=== PATIENT | female | born 1990 | race Two or more races ===

== ENCOUNTER 2018-07-08 21:55 | Emergency (ER) | payer OTHER ==
[~2018-07-08] VITALS: Ht 157.5 cm; Wt 79.4 kg
[2018-07-08 22:49] LABS: Basophils # (auto) 0 uL; Basophils % (auto) 0.3 % (0.0-2.0); Eosinophils # (auto) 0.2 uL; Eosinophils % (auto) 2.2 % (0.0-7.0); Hematocrit 34.4 % (36.0-46.0); Hemoglobin 10.7 g/dL (12.2-16.2); Lymphocytes # (auto) 2.5 uL; Lymphocytes % (auto) 30.8 % (10.0-50.0); Mean Corpuscular Hemoglobin 22.4 pg (28.0-32.0); Mean Corpuscular Volume 72.2 fL (80.0-100.0); Monocytes # (auto) 0.6 uL; Monocytes % (auto) 7.7 % (0.0-12.0); Neutrophils # (auto) 4.8 uL; Nucleated Red Blood Cells % 0.1 %; Platelet Count (auto) 271 10^3/uL (140-450); Red Blood Cells 4.77 10^6/uL (4.0-5.20); Red Cell Distribution Width 16.9 % (11.8-14.3); White Blood Cell 8.1 10^3/uL (4.4-10.8)
[2018-07-08 23:05] LABS: Albumin 3.7 g/dL (3.4-5.0); BUN/Creatinine Ratio 14.9; Calcium 9.1 mg/dL (8.5-10.1); Potassium 3.5 mmol/L (3.5-5.1)
[2018-07-08 23:08] LABS: Bilirubin, Total 0.2 mg/dL (0.2-1.0); Total Protein 8.3 g/dL (6.4-8.2)
[2018-07-08 23:31] LABS: Urine Bacteria FEW /hpf (None Seen); Urine Blood Negative /uL (Negative); Urine Mucus FEW (None Seen); Urine WBC 3 /hpf (0 - 5)
[2018-07-09] MEDS ORDERED: SODIUM CHLORIDE 0.9% 1,000 ML IV ONE (00:45)
[2018-07-09] MEDS ORDERED: MORPHINE SULFATE 4 MG/ML SYR/VIAL IV ONE (02:00)
[2018-07-09] MEDS ORDERED: ONDANSETRON HCL 4 MG/2 ML VIAL IV ONE (02:00)
[2018-07-09 04:20] VITALS: BP 96/62
== END 2018-07-09 04:32 ==
LOC: ER 22:06 → EEVIPCON 22:06 → ER 07-09 04:32
DX: K58.9 Irritable bowel syndrome, unspecified (principal); K21.9 Gastro-esophageal reflux disease without esophagitis; Z90.49 Acquired absence of other specified parts of digestive tract
CPT/HCPCS: 36415; 74176; 76705; 80053; 81001; 82150; 83690; 85025; 96361; 96374; 96375; 99284; J2270; J2405

== ENCOUNTER 2018-08-02 18:38 | Emergency (ER) | payer OTHER ==
[~2018-08-02] VITALS: Ht 157.5 cm; Wt 81.2 kg
[~2018-08-02 18:38] MED LIST: BUSP10TA90 PO; FLUO-125 PO; ONDA4TAB5 PO; PROP20TA73 PO
[2018-08-02 19:45] LABS: Basophils # (auto) 0 uL; Eosinophils # (auto) 0.1 uL; Hemoglobin 11.3 g/dL (12.2-16.2); Monocytes # (auto) 0.8 uL; Nucleated Red Blood Cells % 0.1 %; Red Cell Distribution Width 17.6 % (11.8-14.3)
[2018-08-02] MEDS ORDERED: SODIUM CHLORIDE 0.9% 1,000 ML IV ONE (19:45)
[2018-08-02] MEDS ORDERED: ONDANSETRON HCL 4 MG/2 ML VIAL IV ONE (19:45)
[2018-08-02 19:46] LABS: Basophils % (auto) 0.3 % (0.0-2.0); Eosinophils % (auto) 1.4 % (0.0-7.0); Hematocrit 35.3 % (36.0-46.0); Lymphocytes # (auto) 2.8 uL; Lymphocytes % (auto) 32.4 % (10.0-50.0); Mean Corpuscular Hgb Conc. 31.9 g/dL (32.0-36.0); Mean Corpuscular Volume 72.1 fL (80.0-100.0); Monocytes % (auto) 9.4 % (0.0-12.0); Neutrophils # (auto) 4.8 uL; Neutrophils % (auto) 56.5 % (37.0-80.0); Platelet Count (auto) 215 10^3/uL (140-450); White Blood Cell 8.5 10^3/uL (4.4-10.8)
[2018-08-02 19:52] LABS: Urine Bacteria FEW /hpf (None Seen); Urine Blood Negative /uL (Negative); Urine Specific Gravity 1.017 (1.001-1.035); Urine WBC 15 /hpf (0 - 5)
[2018-08-02 20:02] LABS: Albumin 4.1 g/dL (3.4-5.0); BUN/Creatinine Ratio 9.2; Calcium 9.3 mg/dL (8.5-10.1); Potassium 3.5 mmol/L (3.5-5.1)
[2018-08-02 20:05] LABS: Bilirubin, Total 0.3 mg/dL (0.2-1.0); Total Protein 8.8 g/dL (6.4-8.2)
[2018-08-02 20:33] LABS: Amylase 39 U/L (25-115); Lipase 75 U/L (73-393)
[2018-08-02] MEDS ORDERED: HYDROmorphone HCL 2 MG/ML VL IV ONE (21:30)
[2018-08-02] MEDS ORDERED: MAGNESIUM CITRATE SOLUTION 300 ML BTL PO ONE (22:15)
[2018-08-02 22:59] VITALS: BP 107/45
[2018-08-02] MEDS ORDERED: ONDANSETRON ODT 4 MG TAB PO ONE (23:00)
== END 2018-08-03 00:35 | disposition home or self-care (01) ==
LOC: EDBD 18:38 → ER 18:39
DX: K59.00 Constipation, unspecified (principal); R11.2 Nausea with vomiting, unspecified; K21.9 Gastro-esophageal reflux disease without esophagitis; Z91.040 Latex allergy status; Z79.899 Other long term (current) drug therapy
CPT/HCPCS: 36415; 74176; 80053; 81001; 81025; 82150; 83690; 85025; 96361; 96374; 96375; 99284; J1170; J2405; J7030; Q0162

== ENCOUNTER 2019-07-16 18:35 | Inpatient (IN) | payer OTHER ==
[~2019-07-16] VITALS: Ht 157.5 cm; Wt 84.3 kg
[~2019-07-16 18:35] MED LIST changes: +ONDA-144 PO; -ONDA4TAB5 PO
[2019-07-16] MEDS ORDERED: SODIUM CHLORIDE 0.9% 1,000 ML IVB ONE (19:56)
[2019-07-16 20:51] LABS: Basophils # (auto) 0 10 ^3/uL (0-0.2); Eosinophils # (auto) 0.1 10 ^3/uL (0-0.8); Eosinophils % (auto) 1.9 % (0.0-7.0); Hematocrit 35.9 % (36.0-46.0); Mean Corpuscular Volume 76.8 fL (80.0-100.0); Monocytes # (auto) 0.6 10 ^3/uL (0-1.3); Neutrophils % (auto) 55.4 % (37.0-80.0); Nucleated Red Blood Cells % 0.1 %
[2019-07-16 20:53] LABS: Basophils % (auto) 0.3 % (0.0-2.0); Hemoglobin 11.9 g/dL (12.2-16.2); Lymphocytes # (auto) 2.4 10 ^3/uL (0.4-5.4); Lymphocytes % (auto) 33.9 % (10.0-50.0); Mean Corpuscular Hemoglobin 25.5 pg (28.0-32.0); Mean Corpuscular Hgb Conc. 33.2 g/dL (32.0-36.0); Monocytes % (auto) 8.5 % (0.0-12.0); Neutrophils # (auto) 3.9 10 ^3/uL (1.6-8.6); Platelet Count (auto) 216 10^3/uL (140-450); Red Blood Cells 4.68 10^6/uL (4.0-5.20); Red Cell Distribution Width 16.6 % (11.8-14.3); White Blood Cell 7.1 10^3/uL (4.4-10.8)
[2019-07-16 21:00] LABS: INR 0.99 (0.9-1.15); Partial Thromboplastin Time 29.3 sec (23.64-32.05)
[2019-07-16 21:02] LABS: Albumin 3.7 g/dL (3.4-5.0); Anion Gap 3 (5-15); Blood Alcohol < 3.0 mg/dL (0-5); Blood Urea Nitrogen 8 mg/dL (7-18); Carbon Dioxide 28 mmol/L (21-32); Chloride 108 mmol/L (98-107); Glucose 83 mg/dL (74-106); Potassium 4.2 mmol/L (3.5-5.1); Sodium 139 mmol/L (136-145)
[2019-07-16 21:08] LABS: Alanine Aminotransferase 31 U/L (13-56); Alkaline Phosphatase 82 U/L (45-117); Aspartate Aminotransferase 21 U/L (15-37); BUN/Creatinine Ratio 9.6; Bilirubin, Total 0.1 mg/dL (0.2-1.0); GFR African American 105 mL/min; GFR Non-African American 87 mL/min; Total Protein 8.1 g/dL (6.4-8.2)
[2019-07-16] MEDS ORDERED: fentaNYL CITRATE 100 MCG/2 ML VL IV ONE (21:15)
[2019-07-16 21:22] LABS: Urine WBC None Seen /hpf (0 - 5)
[2019-07-16 21:28] LABS: Urine Bacteria NONE SEEN /hpf (None Seen); Urine Blood Negative /uL (Negative)
[2019-07-16 21:41] LABS: Alcohol, Urine < 3.0 mg/dL (0-5); Amphetamine Screen, Urine NEGATIVE (NEGATIVE); Barbiturate Scree,Urine NEGATIVE (NEGATIVE); Benzodiazephine Screen, Urine NEGATIVE (NEGATIVE); Cannabinoid Screen, Urine NEGATIVE (NEGATIVE); Cocaine Screen, Urine NEGATIVE (NEGATIVE); Opiate Scree,Urine NEGATIVE (NEGATIVE); Phencyclidine Screen, Urine NEGATIVE (NEGATIVE)
[2019-07-17] VITALS (8 sets, daily range): BP systolic 88–136; BP diastolic 54–68
[2019-07-17] MEDS ORDERED: fentaNYL CITRATE 100 MCG/2 ML VL IV ONE (00:15)
[2019-07-17] MEDS ORDERED: MORPHINE SULF INJ 2 MG/ML SYRINGE 1ML IV PRN (02:30)
[2019-07-17] MEDS ORDERED: NITROGLYCERIN 0.4 MG SL TAB SL PRN (02:30)
--- NOTE | 2019-07-17 03:15 | NUR ---
Telemetry admit from [facility] admitted to Telemetry unit after SBAR received. Patient oriented to CARLEEN KEN, RN primary RN, unit, room, bed, and unit policies regarding patient care and visiting hours. Patient now on continuous telemetry monitoring, tele box #10 and telemetry reading on arrival to unit is sinus bradycardia. Patient weighed by bedscale and encouraged to call if they need something. All questions and concerns addressed, patient verbalized understanding.
--- NOTE | 2019-07-17 03:45 | NUR ---
Patient complaining of head pain 02/11. Paged Dr. Martin, awaiting orders. Will continue to monitor.
--- NOTE | 2019-07-17 03:58 | NUR ---
Dr. Martin called regarding patient's pain. Orders received.
[2019-07-17] MEDS: HYDROcodone-ACET 10/325MG TAB PO PRN ×5 (04:17→21:31)
--- NOTE | 2019-07-17 04:17 | NUR ---
Patient's headache 10. Medication administered. Will reassess in one hour.
--- NOTE | 2019-07-17 05:17 | NUR ---
Pain reassessed patient stating pain is 10/10. Patient was lying in bed with eyes closed, patient struggling to keep eyes open. No sign of pain or distressed. Offered patient a compress for her head patient declined. Will continue to monitor every hour and as needed.
--- NOTE | 2019-07-17 05:48 | NUR ---
Patient's blood pressure BP 88/54, paged Dr. Martin. Awaiting call back. Will continue to monitor.
[2019-07-17] MEDS ORDERED: SODIUM CHLORIDE 0.9% 1,000 ML IV ONE (06:15)
[2019-07-17] MEDS ORDERED: INFLUENZA QUAD 2019-2020 0.5ml SYRG IM ONE (07:00)
--- NOTE | 2019-07-17 07:15 | NUR ---
Opening Shift Note Received report from Emily BULLOCK. Assumed care of patient, awake and alert. No S/S of distress/SOB. Reported pain and talks so soft, saw grimacing because of the pain. Noted nailer hand at bedside. Instructed on POC and to call for assist PRN, will continue to monitor for changes Q1hr and PRN.
--- NOTE | 2019-07-17 08:33 | NUR ---
PAIN PATIENT VERBALIZED PAIN ON BOTH EARS. GAVE NORCO 10/325MG PO PRN ORDERED BY .
--- NOTE | 2019-07-17 08:40 | NUR ---
OBTAINED STOOL SAMPLE, NO BLOOD AND NOT WATERY. SENT TO LAB.
[2019-07-17] MEDS: ENOXAPARIN SOD 40 MG/0.4 ML SYRINGE SC SCH (09:05)
--- NOTE | 2019-07-17 09:33 | NUR ---
PAIN REASSESSMENT PATIENT REPORTED REDUCED PAIN. SAID SHE HAD A GOOD NAP.
--- NOTE | 2019-07-17 12:40 | NUR ---
Dr Martin at bedside.
--- NOTE | 2019-07-17 12:51 | NUR ---
PAIN PATIENT COMPLAINING OF PAIN, GRIMACING AND REQUESTING PAIN RELIEVER. GAVE NORCO 10/325MG PO ORDERED BY MD. POSITIONED COMFORTABLY.
[2019-07-17] MEDS ORDERED: GADOTERIDOL 279.3mg/mL 20ml Vial IV ONE (13:24)
--- NOTE | 2019-07-17 13:51 | NUR ---
PATIENT REPORTED REDUCED PAIN.
--- NOTE | 2019-07-17 14:28 | NUR ---
NUTRITION ASSESSMENT NOTES Please refer to link notes of nutrition screen form filed under the intervention section of the plan of care for further details. Est. Energy Needs: 3104-1201 kcal (17-20 kcal/kg BW). Est. Protein Needs: 47-59 gms/day (0.8-1.0 gms/kg Adj.BW). Will continue to monitor pertinent labs and reassess nutrient need prn Addendum: 07/17/19 at [address] Amended: Links added.
[2019-07-17] MEDS: SODIUM CHLORIDE 0.9% 1,000 ML IV SCH ×2 (14:34→22:49)
--- NOTE | 2019-07-17 14:45 | NUR ---
Dr Aki Eddy at bedside.
--- NOTE | 2019-07-17 17:08 | NUR ---
PAIN PATIENT IS COMPLAINING "POUNDING" HEADACHE. GAVE NORCO 10/325MG PO PRN ORDERED BY MD. POSITIONED COMFORTABLY.
--- NOTE | 2019-07-17 18:08 | NUR ---
PAIN REASSESSMENT PATIENT SAID THAT NORCO REDUCED THE PAIN FOR AN HOUR, THEN COME UP AGAIN. POSITIONED COMFORTABLY.
--- NOTE | 2019-07-17 19:15 | NUR ---
Opening Shift Note Assumed care of patient, awake and alert. No S/S of distress/SOB. Safety measures in place call light within reach, bed in lowest position, and side rails x2 up. Instructed on POC and to call for assist PRN, will continue to monitor for changes Q1hr and PRN.
--- NOTE | 2019-07-17 19:33 | NUR ---
residential monitor indicated patient's heart rate was 140-150. Upon entering the room patient is asymptomatic. EKG performed patient's heart rate is 62 and patient is NSR. hot cell technician upon closer inspection verified patient HR is in the 80's with artifact present. Will continue to monitor every hour and as needed.
--- NOTE | 2019-07-17 20:21 | NUR ---
Patient informed Emily BULLOCK that her pain medication is not helping her headache. Patient states she has 1 hour of decreased pain, and headache returns to 10/10. Paged DR. Martin requesting breakthrough medication. Awaiting orders.
--- NOTE | 2019-07-17 21:31 | NUR ---
Patient inquired why she cannot get anything stronger for pain like morphine. Educated patient that the physician has to order medications before they are administered. Also informed patient that morphine administration would require the patient's blood pressure to be at a normal level and she is currently exhibiting decreased blood pressure. Will continue to monitor.
--- NOTE | 2019-07-17 21:31 | NUR ---
Patient stating pain is 10/10. Patriot 10/325 administered. Will also provide patient with a cold compress to help ease her pain. Will reassess in one hour. Will continue to monitor every hour and as needed.
[2019-07-17] MEDS ORDERED: PROPRANOLOL HCL 20 MG TAB PO SCH (22:00)
[2019-07-17] MEDS ORDERED: FLUoxetine HCL 20 MG CAP PO SCH (22:00)
[2019-07-17] MEDS ORDERED: busPIRone HCL 10 MG TAB PO SCH (22:00)
--- NOTE | 2019-07-17 22:31 | NUR ---
Pain reassessment Pain reassessed patient states pain is 10/10. Patient provided with cold compresses applied to forehead and neck. Will continue to monitor every hour and as needed.
--- NOTE | 2019-07-18 01:30 | NUR ---
Pain Patient complaining of head and ear pain 10/10. Medication administered. Provided patient with hot packs to apply to the back of her neck. Will reassess pain in one hour. Will continue to monitor every hour and as needed.
[2019-07-18] MEDS: HYDROcodone-ACET 10/325MG TAB PO PRN ×4 (01:32→14:11)
--- NOTE | 2019-07-18 02:32 | NUR ---
Pain reassessment Patient states pain is currently 9/10. Patient is resting with eyes closed with a hot pack on her neck. Will continue to monitor patient every hour and as needed.
[2019-07-18 05:00] VITALS: BP 93/58
[2019-07-18] MEDS: SODIUM CHLORIDE 0.9% 1,000 ML IV SCH ×2 (05:12→11:58)
--- NOTE | 2019-07-18 05:44 | NUR ---
Patient states head and ear pain is 10/10. Medication administered. Will assess in one hour.
[2019-07-18 06:16] LABS: BUN/Creatinine Ratio 14.3; Calcium 8.5 mg/dL (8.5-10.1); Potassium 4.4 mmol/L (3.5-5.1)
--- NOTE | 2019-07-18 06:44 | NUR ---
Pain reassessment Patient is currently lying in bed with her eyes closed. Patient states pain is currently 10/10. Patient refused ice pack. Will endorse care to dayshift RN.
--- NOTE | 2019-07-18 07:30 | NUR ---
Opening Shift Note Received report from Emily BULLOCK. Assumed care of patient, awake and alert. No S/S of distress/SOB. Reported headache that does not go away. Noted snf guards at bedside. Instructed on POC and to call for assist PRN, will continue to monitor for changes Q1hr and PRN.
[2019-07-18 08:00] VITALS: BP 98/56
[2019-07-18 09:03] VITALS: BP 98/56
[2019-07-18] MEDS: ENOXAPARIN SOD 40 MG/0.4 ML SYRINGE SC SCH (09:57)
--- NOTE | 2019-07-18 09:58 | NUR ---
PAIN PATIENT STILL COMPLAINING OF HEADACHE, GAVE NORCO 10/325MG PO PRN ORDERED BY .
--- NOTE | 2019-07-18 10:58 | NUR ---
PAIN ASSESSMENT PATIENT SAID THE PAIN IS REDUCED A BIT. POSITIONED COMFORTABLY.
[2019-07-18 12:56] VITALS: BP 96/54
[2019-07-18 13:53] VITALS: BP 96/54
--- NOTE | 2019-07-18 14:00 | NUR ---
RECHECKED TEMP: 98. PATIENT NO S/S OF ANY DISTRESS.
--- NOTE | 2019-07-18 14:10 | NUR ---
PATIENT REQUESTING NORCO FOR HER HEADACHE. GAVE THE MEDICINE ORDERED BY .
--- NOTE | 2019-07-18 14:19 | NUR ---
Discharge instructions given as ordered. Encourage to follow up with [facility] as instructed. All questions and concerns addressed. Patient verbalized understanding, needed vaccines given. IV removed with catheter intact, pressure dressing applied. Telemetry unit returned to ICU. Patient taken to vehicle via wheelchair with all personal belongings, accompanied by staff and pop singer with van security personnel. No distress noted at time of departure.
== END 2019-07-18 14:20 | DRG 312 ==
LOC: EDBD 18:35 → EEVIPCON 18:37 → ER 18:37 → TELE 18:38 → TELE-EAST 07-17 03:18
PROVIDERS: ADMIT Internal Medicine; ATTEND Internal Medicine
DX: R55 Syncope and collapse (principal); R19.7 Diarrhea, unspecified; D64.9 Anemia, unspecified; F32.9 Major depressive disorder, single episode, unspecified; R51 Headache; H53.8 Other visual disturbances; B34.9 Viral infection, unspecified; F41.9 Anxiety disorder, unspecified; K21.9 Gastro-esophageal reflux disease without esophagitis; I95.9 Hypotension, unspecified; Z91.040 Latex allergy status; Z91.010 Allergy to peanuts; Z82.5 Family history of asthma and other chronic lower respiratory diseases; Z91.018 Allergy to other foods; Z23 Encounter for immunization
CPT/HCPCS: 36415; 70450; 70551; 73706; 80048; 80053; 80307; 80320; 81001; 82270; 84484; 85025; 85379; 85610; 85730; 93005; 96361; 96374; 96375; G0378